=== PATIENT | male | born 1975 | race Caucasian/White ===

== ENCOUNTER 2021-05-18 09:55 | Emergency (ER) | payer OTHER ==
[2021-05-18 10:10] VITALS: BP 113/81; PULSE 53
[2021-05-18] MEDS ORDERED: Lidocaine 1% 10 ML MDV INJECT ONE (11:22)
--- NOTE | 2021-05-18 13:00 | EDM.PDOC ---
ED HPI GENERAL MEDICAL PROBLEM - General Chief Complaint: Laceration Stated Complaint: LT HAND POINTER AND MIDDLE FINGER LAC Time Seen by Provider: 05/18/21 11:09 Source of Information: Reports: Patient History Limitations: Reports: No Limitations - History of Present Illness INITIAL COMMENTS - FREE TEXT/NARRATIVE: 45-year-old male presents the emergency department today with a laceration noted to the distal aspect of his left index and middle finger. The patient states he was splitting wood with a wood splitter when his hand slipped and got caught between the wood in the splitter. Patient states that this happened just prior to arrival. He is unaware if his tetanus is up-to-date or not. Left Hand Pain Score (Numeric/FACES): 7 - Related Data Allergies Allergy/AdvReac Type Severity Reaction Status Date / Time No Known Allergies Allergy Verified 05/18/21 10:10 Home Meds: Home Meds cephALEXin [Keflex] 500 mg PO QID #28 cap 05/18/21 [Rx] Past Medical History - Past Health History Medical/Surgical History: Denies Medical/Surgical History - Infectious Disease History Infectious Disease History: Reports: Novel Coronavirus Social & Family History - Tobacco Use Tobacco Use Status *Q: Former Tobacco User Used Tobacco, but Quit: Yes Month/Year Tobacco Last Used: 08/2016 - Caffeine Use Caffeine Use: Reports: Coffee - Recreational Drug Use Recreational Drug Use: No ED ROS GENERAL - Review of Systems Review Of Systems: Comprehensive ROS is negative, except as noted in HPI. ED EXAM, SKIN/RASH Exam: See Below Exam Limited By: No Limitations General Appearance: Alert, WD/WN, No Apparent Distress Ears: Normal External Exam, Hearing Grossly Normal Nose: Normal Inspection Throat/Mouth: Normal Inspection, Normal Lips, Normal Voice, No Airway Compromise Head: Atraumatic Neck: Normal Inspection, Supple Respiratory/Chest: No Respiratory Distress, No Accessory Muscle Use Cardiovascular: Normal Peripheral Pulses, Regular Rate, Rhythm GI/Abdominal: No Distention (Male) Exam: Deferred Rectal (Males) Exam: Deferred Back Exam: Normal Inspection Extremities: No: Normal Inspection (2 and half centimeter laceration noted on the dorsal aspect of the left middle finger through the nail bed; 2 and half centimeter laceration noted on the dorsal aspect of the left index finger just proximal the nail bed) Neurological: Alert, Oriented, Normal Cognition Psychiatric: Normal Affect, Normal Mood Skin: Warm, Dry, Intact, Normal Color, No Rash Location, Skin: Upper Extremity, Left Characteristics: Linear Lymphatic: No Adenopathy ED SKIN PROCEDURES - Laceration/Wound Repair Left Dorsal Digit - 2nd (Index) Appearance: Superficial Anesthetic Type: Digital Local Anesthesia - Lidocaine (Xylocaine): 1% Plain Local Anesthetic Volume: 3cc Closed with: Sutures Lac/Wound length In cm: 2.5 Suture Size: 5-0 # of Sutures: 6 Suture Type: Nylon, Interrupted Left Dorsal Digit - 3rd (Middle) Appearance: Superficial Anesthetic Type: Digital Local Anesthesia - Lidocaine (Xylocaine): 1% Plain Local Anesthetic Volume: 3cc Closed with: Sutures Lac/Wound length In cm: 2.5 Suture Size: Other (3 sutures placed in the nailbed using 4-0; 2 sutures placed just on the right lateral nailbed using 5-0) Suture Type: Silk, Interrupted Course - Vital Signs Text/Narrative:: Upon exam, the patient has a 2-1/2 cm laceration noted to the dorsal aspect of his index finger at the distal and just below the nailbed. Bleeding is controlled. He also has a 2-1/2 cm laceration noted on the dorsal aspect of his left middle finger running through the nailbed. Lacerations will need to be sutured. Will obtain x-rays of the left index and middle finger prior to suturing. Will plan on doing a digital block on both the index and middle finger on the left hand using 1% lidocaine. Last Recorded V/S: Last Vital Signs Temp 97 F 05/18/21 10:03 Pulse 53 L 05/18/21 10:03 Resp 16 05/18/21 10:03 BP 113/81 05/18/21 10:03 Pulse Ox 99 05/18/21 10:03 - Orders/Labs/Meds Orders: Active Orders 24 hr Category Date Time Status Fingers Multiple Lt [CR] Stat Exams 05/18/21 11:21 Taken Meds: Medications Discontinued Medications Generic Name Dose Route Start Last Admin Trade Name Freq PRN Reason Stop Dose Admin Lidocaine HCl 10 ml 05/18/21 11:22 05/18/21 12:18 Lidocaine 1% 10 Ml Mdv INJECT 05/18/21 11:23 10 ml ONETIME ONE Administration - Re-Assessments/Exams Free Text/Narrative Re-Assessment/Exam: 05/18/21 13:00 X-rays of left index and middle finger were reviewed and there is no acute fracture appreciated. Left hand was prepped and draped in sterile fashion. 6 lacerations were placed on left index finger. 5 lacerations were placed on left middle finger using 5-0 Vicryl.. 3 through the nailbed using a 4-0 Vicryl. To just on the right la teral side of the nailbed using 5-0 Vicryl. Departure - Departure Time of Disposition: 13:07 Disposition: Home, Self-Care 01 Condition: Good Clinical Impression: Laceration - Discharge Information Prescriptions: cephALEXin [Keflex] 500 mg PO QID #28 cap Instructions: Nail Bed Injury, [id number], Sutures, Manish, or Adhesive Wound Closure, [id number], Laceration Care, Adult, [id number] Referrals: PCP,None [Primary Care Provider] - Additional Instructions: You were seen in the emergency department today with lacerations noted to your left index and middle finger. X-rays were completed and there is no obvious fracture noted. Laceration was noted to your nailbed and this was repaired. You will be started on an antibiotic called Keflex 500 mg. You will need to take this medication 4 times daily for 7 days. Be sure to complete this course of antibiotic to prevent infection. Your tetanus shot was updated today. Be sure to document this somewhere in your records as it is good for 10 years. Sutures can be removed in 10 days time. Watch for any signs or symptoms of infection such as increased redness, warmth, swelling or drainage. Keep the dressing on for 24 hours. Then wash the wound twice daily with mild soap such as Dial or Angelo's baby shampoo. Pat the area dry and apply a thin film of bacitracin. If you are going to be working with your hands, be sure to wear some type of bandage to keep the wound clean. Should your condition worsen or change, do not hesitate returning to the emergency department. Sepsis Event Note (ED) - Evaluation Sepsis Screening Result: No Definite Risk - Focused Exam Vital Signs: Vital Signs Temp Pulse Resp BP Pulse Ox 05/18/21 10:03 97 F 53 L 16 113/81 99 - My Orders Last 24 Hours: My Active Orders 05/18/21 11:21 Fingers Multiple Lt [CR] Stat - Assessment/Plan Last 24 Hours: My Active Orders 05/18/21 11:21 Fingers Multiple Lt [CR] Stat
[2021-05-18] MEDS ORDERED: Diphtheria,Pertussis(Acell),Tetanus Vaccine 0.5 ML Syringe IM ONE (13:07)
--- NOTE | 2021-05-18 16:09 | CR ---
Left fingers: 3 views centered to the left second and third fingers were obtained. Comparison: No prior hand or finger study is available. Joint spaces are preserved. Small lucent line is noted within the tuft of the distal third finger compatible with minimal tuft fracture. No additional fracture or other bony abnormality is appreciated. Impression: 1. Small tuft fracture within the distal left third finger. 2. No additional osseous abnormality is appreciated. Diagnostic code #3
== END 2021-05-18 13:25 | disposition home or self-care (01) ==
LOC: JD.ED 09:55
DX: S61.211A Laceration without foreign body of left index finger without damage to nail, initial encounter (principal); S61.213A Laceration without foreign body of left middle finger without damage to nail, initial encounter; Z87.891 Personal history of nicotine dependence; Z86.16 Personal history of COVID-19; Z23 Encounter for immunization; W23.0XXA Caught, crushed, jammed, or pinched between moving objects, initial encounter
CPT/HCPCS: 12002; 73140-26-LT; 73140-LT; 90471; 90715; 99283; 99283-25

== ENCOUNTER 2024-06-13 09:55 | Emergency (ER) | payer OTHER ==
[2024-06-13 11:47] VITALS: BP 125/78; PULSE 68
== END 2024-06-13 11:21 | disposition home or self-care (01) ==
LOC: JD.ED 09:55
DX: S61.412A Laceration without foreign body of left hand, initial encounter (principal); Z86.16 Personal history of COVID-19; W27.8XXA Contact with other nonpowered hand tool, initial encounter
CPT/HCPCS: 12001; 73130-26-LT; 73130-LT; 99283